=== PATIENT | male | born 1955 | race American Indian/Alaskan Native ===

== ENCOUNTER 2016-12-27 13:08 | Observation (INO) | payer MEDICARE, BC ==
--- NOTE | 2016-12-27 14:06 | C.PDOC ---
History Of Present Illness Patient is a 61 y/o M with hx of cirrhosis, GI bleed, ESRD on HD MWF, presenting with anemia. He reports that routine screening showed anemia to 7.8 and he was sent to ED for evaluation. Patient reports that he had one episode last week of dark blood in stool. Denies hematemesis. PMD: Dr. Isaac Time Seen by Provider: 12/27/16 13:48 Chief Complaint (Nursing): Abnormal Labs Past Medical History Vital Signs: Last Vital Signs Temp 99.3 F 12/27/16 13:15 Pulse 61 12/27/16 13:15 Resp 15 12/27/16 13:15 BP 144/79 12/27/16 13:15 Pulse Ox 99 12/27/16 16:19 - Medical History PMH: Anemia, Colonic Polyps, HTN - [facility] Procedures HEMODIALYSIS (07/13/13) PACKED CELL TRANSFUSION (03/13/13) Family History: States: No Known Family Hx - Social History Hx Tobacco Use: No Hx Alcohol Use: No Hx Substance Use: No - Immunization History Hx Tetanus Toxoid Vaccination: No Hx Influenza Vaccination: No Hx Pneumococcal Vaccination: No Review Of Systems Constitutional: Negative for: Fever, Chills Cardiovascular: Negative for: Chest Pain, Palpitations, Orthopnea, Edema, Light Headedness Respiratory: Negative for: Cough, Shortness of Breath, SOB with Excertion Gastrointestinal: Positive for: Other (bloody stool). Negative for: Nausea, Vomiting, Abdominal Pain, Diarrhea, Constipation, Hematemesis Genitourinary: Negative for: Dysuria, Frequency, Hematuria Neurological: Negative for: Weakness, Numbness Physical Exam - Physical Exam Appears: Well, Non-toxic, No Acute Distress Head: Atraumatic, Normacephalic Eye(s): bilateral: Normal Inspection, PERRL, EOMI Chest: Symmetrical Cardiovascular: Rhythm Regular Respiratory: Normal Breath Sounds, No Rales, No Rhonchi, No Wheezing, No Plerual Rub Gastrointestinal/Abdominal: Soft, No Tenderness, No Mass, No Distention Back: Normal Inspection, No CVA Tenderness Extremity: Other (AV fistula with thrill to LUE) ED Course And Treatment O2 Sat by Pulse Oximetry: 99 Medical Decision Making Medical Decision Making: Dialysis sent blood work showing hgb:7.6. Nurses tried for access and electronic lab technician came to get access and patient refusing. He will not allow any more attempts. Dr. Cabrera to admit for Dr. Isaac. Spoke to Dr. Cabrera who is aware about lack of repeat blood work. He reports he will get during dialysis and transfuse as necessary. Patient currently hemodynamically stable and denying any bleeding. Disposition - Disposition Disposition Time: 16:29 Condition: FAIR - Clinical Impression Clinical Impression: Anemia
--- NOTE | 2016-12-27 22:42 | CP.PCM.HP ---
Past Patient History - Past Social History Smoking Status: Former Smoker - CARDIAC Hx Hypertension: Yes - RENAL Date of Last Dialysis Treatment: 12/26/16 - HEMATOLOGICAL/ONCOLOGICAL Hx Anemia: Yes - MUSCULOSKELETAL/RHEUMATOLOGICAL Hx Falls: No - GASTROINTESTINAL Other/Comment: colonic polyps - PSYCHIATRIC Hx Substance Use: No - SURGICAL HISTORY Hx Surgeries: Yes Hx Arteriovenous Shunt: Yes (fistula) - ANESTHESIA Hx Anesthesia: Yes Hx Anesthesia Reactions: No Hx Malignant Hyperthermia: No Has any member of the family had a problem w/ anesthesia?: No Meds Allergies/Adverse Reactions: Allergies Allergy/AdvReac Type Severity Reaction Status Date / Time No Known Allergies Allergy Verified 12/27/16 13:14 Results - Vital Signs Recent Vital Signs: Last Vital Signs Temp 99.6 F 12/27/16 18:25 Pulse 81 12/27/16 18:25 Resp 20 12/27/16 18:25 BP 160/85 H 12/27/16 18:25 Pulse Ox 97 12/27/16 19:28 - Labs Labs: Laboratory Results - last 24 hr 12/27/16 21:00 Stool Occult Blood Negative
[2016-12-28 09:14] LABS: BASO # 0.1 K/uL (0.0-0.2); BASO % 0.9 % (0.0-2.0); EOS # 0.8 K/uL (0.0-0.7); EOS % 11.8 % (0.0-4.0); LYMPH # 0.6 K/uL (1.0-4.3); LYMPH % 9.1 % (20.0-40.0); MEAN CORPUSCULAR HEMOGLOBIN 24.8 pg (27.0-31.0); MEAN CORPUSCULAR HGB CONC 31.7 g/dL (33.0-37.0); MEAN PLATELET VOLUME 8.3 fL (7.2-11.7); MONO # 0.5 K/uL (0.0-0.8); MONO % 8.2 % (0.0-10.0); NEUT # 4.6 K/uL (1.8-7.0); NRBC % 0.1 % (0.0-2.0); PLATELET COUNT 194 K/uL (130-400); RBC 3.23 Mil/uL (4.40-5.90); RED CELL DISTRIBUTION WIDTH 15.7 % (11.5-14.5); WHITE BLOOD COUNT 6.6 K/uL (4.8-10.8)
[2016-12-28 09:18] LABS: ALBUMIN 3.4 g/dL (3.5-5.0)
[2016-12-28 09:19] LABS: MEAN CELL VOLUME 78.3 fL (80.0-94.0)
[2016-12-28 09:22] LABS: CALCIUM 8.7 mg/dl (8.6-10.4); INR 1.3; PROTHROMBIN TIME 14.7 SECONDS (9.7-12.2)
--- NOTE | 2016-12-28 09:53 | CP.PCM.PN ---
Subjective - Date & Time of Evaluation Date of Evaluation: 12/28/16 Time of Evaluation: 09:52 - Subjective Subjective: consent for dialysis discussed and signed with pt and primary lana hare. pt is a known dialysis for many years 2/2 esrd, renal failure. he has rec'd hd here at [facility] many times in the past. risks and benefits discussed with the pt. per lana hare, pt will have his hd today. no further orders. Objective - Vital Signs/Intake and Output Vital Signs (last 24 hours): Temp Pulse Resp BP Pulse Ox 98.8 F 69 20 163/89 H 97 12/28/16 08:40 12/28/16 08:40 12/28/16 08:40 12/28/16 08:40 12/28/16 08:40 - Medications Medications: Current Medications Dolutegravir Sodium (Tivicay) 50 mg PO DAILY [facility] Enoxaparin Sodium (Lovenox) 30 mg SC DAILY [facility] Losartan Potassium (Cozaar) 50 mg PO DAILY [facility] Last Admin: 12/27/16 21:41 Dose: 50 mg Itryl-0-Emcw Ethyl Esters (Lovaza) 1 gm PO DAILY [facility] Pantoprazole Sodium (Protonix Ec Tab) 40 mg PO DAILY [facility] Pneumococcal Polyvalent Vaccine (Pneumovax 23 Vaccine) 0.5 ml IM .ONCE ONE Stop: 12/29/16 10:01 Propranolol HCl (Inderal) 20 mg PO DAILY [facility] Sucralfate (Carafate Tab) 1 gm PO BID [facility] Tenofovir Disoproxil Fumarate (Viread) 300 mg PO Q7D [facility] - Labs Labs: 12/28/16 08:49 12/28/16 08:49 PT 14.7 SECONDS (9.7-12.2) H 12/28/16 08:49 INR 1.3 12/28/16 08:49 APTT 37 SECONDS (21-34) H 12/28/16 08:49
[2016-12-28] MEDS ORDERED: Enoxaparin 30 mg Syringe SC SCH (10:00)
[2016-12-28 10:09] LABS: ANISOCYTOSIS SLIGHT; BANDS 1 % (0-2); BASOPHIL 2 % (0-2); EOSINOPHIL 14 % (0-4); HYPOCHROMIC SLIGHT; LYMPHOCYTE 8 % (20-40); MONOCYTE 7 % (0-10); NEUTROPHIL 68 % (50-75); OVALOCYTES SLIGHT; PLATELET ESTIMATE NORMAL (NORMAL); POIKILOCYTOSIS SLIGHT; TOTAL CELLS COUNTED 100
[2016-12-28] MEDS: Pantoprazole 40 mg EC Tab PO SCH ×2 (10:43→14:52)
[2016-12-28] MEDS: Omega-3-Acid Ethyl Esters 1 GM Cap PO SCH ×2 (10:43→14:52)
[2016-12-28 11:59] LABS: FOLATE > 20.0 ng/mL
--- NOTE | 2016-12-28 12:02 | CP.PCM.CON ---
History of Present Illness - History of Present Illness History of Present Illness: 61 y/o male with ESRD on maintenance HD. HIV +, Liver cirrhosis, ?Hep C, hX/o GI bleeding sec to gastric polyp HTN was sent to ER from Dialysis clinic because of Hb of 7.8 Pt had resection of gastric polyp few yrs ago & since then Hb has been stable did not have any more melena. Past Patient History - Past Social History Smoking Status: Former Smoker - CARDIAC Hx Hypertension: Yes - RENAL Date of Last Dialysis Treatment: 12/26/16 - HEMATOLOGICAL/ONCOLOGICAL Hx Anemia: Yes - MUSCULOSKELETAL/RHEUMATOLOGICAL Hx Falls: No - GASTROINTESTINAL Other/Comment: colonic polyps - PSYCHIATRIC Hx Substance Use: No - SURGICAL HISTORY Hx Surgeries: Yes Hx Arteriovenous Shunt: Yes (fistula) - ANESTHESIA Hx Anesthesia: Yes Hx Anesthesia Reactions: No Hx Malignant Hyperthermia: No Has any member of the family had a problem w/ anesthesia?: No Meds Allergies/Adverse Reactions: Allergies Allergy/AdvReac Type Severity Reaction Status Date / Time No Known Allergies Allergy Verified 12/27/16 13:14 - Medications Medications: Current Medications Dolutegravir Sodium (Tivicay) 50 mg PO DAILY [facility] Last Admin: 12/28/16 10:43 Dose: Not Given Enoxaparin Sodium (Lovenox) 30 mg SC DAILY [facility] Losartan Potassium (Cozaar) 50 mg PO DAILY [facility] Last Admin: 12/28/16 10:43 Dose: Not Given Nrubr-3-Bamr Ethyl Esters (Lovaza) 1 gm PO DAILY [facility] Last Admin: 12/28/16 10:43 Dose: Not Given Pantoprazole Sodium (Protonix Ec Tab) 40 mg PO DAILY [facility] Last Admin: 12/28/16 10:43 Dose: Not Given Pneumococcal Polyvalent Vaccine (Pneumovax 23 Vaccine) 0.5 ml IM .ONCE ONE Stop: 12/29/16 10:01 Propranolol HCl (Inderal) 20 mg PO DAILY [facility] Last Admin: 12/28/16 10:43 Dose: Not Given Sucralfate (Carafate Tab) 1 gm PO BID [facility] Last Admin: 12/28/16 10:43 Dose: Not Given Tenofovir Disoproxil Fumarate (Viread) 300 mg PO Q7D [facility] Last Admin: 12/28/16 10:43 Dose: Not Given Physical Exam - Constitutional Appears: No Acute Distress - Head Exam Head Exam: ATRAUMATIC, NORMOCEPHALIC - Eye Exam Additional comments: Conjunctiva pale sclera anicteric - ENT Exam ENT Exam: Mucous Membranes Dry - Respiratory Exam Additional comments: Lungs clear - Cardiovascular Exam Cardiovascular Exam: REGULAR RHYTHM - GI/Abdominal Exam Additional comments: Abd soft nontender - Extremities Exam Additional comments: No edema or cyanosis Results - Vital Signs Recent Vital Signs: Last Vital Signs Temp 98.1 F 12/28/16 11:47 Pulse 78 12/28/16 11:47 Resp 18 12/28/16 11:47 BP 168/87 H 12/28/16 11:47 Pulse Ox 98 12/28/16 10:20 - Labs Result Diagrams: 12/28/16 08:49 12/28/16 08:49 Labs: Laboratory Results - last 24 hr 12/27/16 12/28/16 12/28/16 21:00 08:49 08:49 WBC 6.6 RBC 3.23 L Hgb 8.0 L D Hct 25.3 L MCV 78.3 L D MCH 24.8 L MCHC 31.7 L RDW 15.7 H Plt Count 194 MPV 8.3 Neut % (Auto) 70.0 Lymph % (Auto) 9.1 L [place] % (Auto) 8.2 Eos % (Auto) 11.8 H Baso % (Auto) 0.9 Neut # 4.6 Lymph # 0.6 L [place] # 0.5 Eos # 0.8 H Baso # 0.1 Neutrophils % (Manual) 68 Band Neutrophils % 1 Lymphocytes % (Manual) 8 L Monocytes % (Manual) 7 Eosinophils % (Manual) 14 H Basophils % (Manual) 2 Platelet Estimate Normal Hypochromasia (manual) Slight Poikilocytosis (manual Slight Anisocytosis (manual) Slight Ovalocytes Slight Retic Count 2.0 H PT 14.7 H INR 1.3 APTT 37 H Sodium Potassium Chloride Carbon Dioxide Anion Gap BUN Creatinine Est GFR ( Amer) Est GFR (Non-Af Amer) Random Glucose Calcium Ferritin Total Bilirubin AST ALT Alkaline Phosphatase Total Protein Albumin Globulin Albumin/Globulin Ratio Stool Occult Blood Negative Blood Type Antibody Screen 12/28/16 12/28/16 12/28/16 08:49 08:49 10:36 WBC RBC Hgb Hct MCV MCH MCHC RDW Plt Count MPV Neut % (Auto) Lymph % (Auto) [place] % (Auto) Eos % (Auto) Baso % (Auto) Neut # Lymph # [place] # Eos # Baso # Neutrophils % (Manual) Band Neutrophils % Lymphocytes % (Manual) Monocytes % (Manual) Eosinophils % (Manual) Basophils % (Manual) Platelet Estimate Hypochromasia (manual) Poikilocytosis (manual Anisocytosis (manual) Ovalocytes Retic Count PT INR APTT Sodium 134 Potassium 4.9 Chloride 92 L Carbon Dioxide 26 Anion Gap 22 H BUN 32 H Creatinine 10.4 H* Est GFR ( Amer) 6 Est GFR (Non-Af Amer) 5 Random Glucose 122 H Calcium 8.7 Ferritin 847.0 Total Bilirubin 0.7 AST 21 ALT 13 L D Alkaline Phosphatase 74 Total Protein 7.0 Albumin 3.4 L Globulin 3.6 Albumin/Globulin Ratio 1.0 Stool Occult Blood Blood Type O POSITIVE Antibody Screen Negative Assessment & Plan - Assessment and Plan (Free Text) Assessment: ESRD on HD Anemia Hx/o of GI bleed HTN Plan: Pt is receiving 2 units of PRBCs with HD now BP is high todat. UF goal 4 Kg Monitor BP
--- NOTE | 2016-12-28 13:07 | CP.PCM.CON ---
<Anurag Casillas - Last Filed: 12/28/16 13:44> History of Present Illness - History of Present Illness History of Present Illness: PGY3 on heme/onc Dr. Miranda service: 61M PMHx ESRD on HD MWF, HIV, liver cirrhosis was sent to ED per dialysis clinic for hemoglobin of 7.8. Heme/onc was consulted for anemia. Patient reports mild congestion for the past week for which he received medicine and is recovering. Patient also reports one episode of dark stool last week but resolved spontaneously. Patient said he was told he has anemia 4 years ago[address] Patient follows Dr. Randhawa outpatient GI and had unremarkable colonoscopy several years ago per patient. Patient was diagnosed with HIV and follows Dr. Velasco regularily. Patient said he previous viral load was undetectable and takes medicine daily. Currently reports no symptoms. PMHx: see above PSHx: denied FMHx: father from colon CA in his 80s, sister from breast CA in her 50s. Social: former smoker and ETOH use 20 years ago NKDA Review of Systems - Constitutional Constitutional: As Per HPI. absent: Weakness - EENT Eyes: absent: Sees Flashes Ears: absent: Dizziness - Cardiovascular Cardiovascular: absent: Chest Pain, Dyspnea, Dyspnea on Exertion, Edema - Respiratory Respiratory: absent: Cough, Dyspnea - Gastrointestinal Gastrointestinal: Hematochezia. absent: Constipation, Diarrhea, Nausea, Vomiting - Genitourinary Genitourinary: absent: Dysuria - Musculoskeletal Musculoskeletal: absent: Numbness - Neurological Neurological: absent: Weakness Past Patient History - Past Social History Smoking Status: Former Smoker - CARDIAC Hx Hypertension: Yes - RENAL Date of Last Dialysis Treatment: 12/26/16 - HEMATOLOGICAL/ONCOLOGICAL Hx Anemia: Yes - MUSCULOSKELETAL/RHEUMATOLOGICAL Hx Falls: No - GASTROINTESTINAL Other/Comment: colonic polyps - PSYCHIATRIC Hx Substance Use: No - SURGICAL HISTORY Hx Surgeries: Yes Hx Arteriovenous Shunt: Yes (fistula) - ANESTHESIA Hx Anesthesia: Yes Hx Anesthesia Reactions: No Hx Malignant Hyperthermia: No Has any member of the family had a problem w/ anesthesia?: No Meds Allergies/Adverse Reactions: Allergies Allergy/AdvReac Type Severity Reaction Status Date / Time No Known Allergies Allergy Verified 12/27/16 13:14 - Medications Medications: Current Medications Dolutegravir Sodium (Tivicay) 50 mg PO DAILY [facility] Last Admin: 12/28/16 10:43 Dose: Not Given Enoxaparin Sodium (Lovenox) 30 mg SC DAILY [facility] Losartan Potassium (Cozaar) 50 mg PO DAILY [facility] Last Admin: 12/28/16 10:43 Dose: Not Given Cbvpt-2-Fyne Ethyl Esters (Lovaza) 1 gm PO DAILY [facility] Last Admin: 12/28/16 10:43 Dose: Not Given Pantoprazole Sodium (Protonix Ec Tab) 40 mg PO DAILY [facility] Last Admin: 12/28/16 10:43 Dose: Not Given Pneumococcal Polyvalent Vaccine (Pneumovax 23 Vaccine) 0.5 ml IM .ONCE ONE Stop: 12/29/16 10:01 Propranolol HCl (Inderal) 20 mg PO DAILY [facility] Last Admin: 12/28/16 10:43 Dose: Not Given Sucralfate (Carafate Tab) 1 gm PO BID [facility] Last Admin: 12/28/16 10:43 Dose: Not Given Tenofovir Disoproxil Fumarate (Viread) 300 mg PO Q7D [facility] Last Admin: 12/28/16 10:43 Dose: Not Given Physical Exam - Constitutional Appears: Non-toxic, No Acute Distress - Head Exam Head Exam: NORMAL INSPECTION, NORMOCEPHALIC - Eye Exam Eye Exam: Normal appearance Pupil Exam: NORMAL ACCOMODATION - ENT Exam ENT Exam: Mucous Membranes Moist - Respiratory Exam Respiratory Exam: Clear to Auscultation Bilateral, NORMAL BREATHING PATTERN. absent: Wheezes - Cardiovascular Exam Cardiovascular Exam: REGULAR RHYTHM, +S1, +S2. absent: Gallop, Rubs - GI/Abdominal Exam GI & Abdominal Exam: Normal Bowel Sounds - Extremities Exam Extremities exam: Negative for: pedal edema - Neurological Exam Neurological exam: Alert, CN II-XII Intact, Oriented x3 - Psychiatric Exam Psychiatric exam: Normal Mood - Skin Skin Exam: Intact Results - Vital Signs Recent Vital Signs: Last Vital Signs Temp 98.1 F 12/28/16 12:47 Pulse 75 12/28/16 12:47 Resp 18 12/28/16 12:47 BP 165/87 H 12/28/16 12:50 Pulse Ox 98 12/28/16 10:20 - Labs Result Diagrams: 12/28/16 08:49 12/28/16 08:49 Labs: Laboratory Results - last 24 hr 12/27/16 12/28/16 12/28/16 21:00 08:49 08:49 WBC 6.6 RBC 3.23 L Hgb 8.0 L D Hct 25.3 L MCV 78.3 L D MCH 24.8 L MCHC 31.7 L RDW 15.7 H Plt Count 194 MPV 8.3 Neut % (Auto) 70.0 Lymph % (Auto) 9.1 L [place] % (Auto) 8.2 Eos % (Auto) 11.8 H Baso % (Auto) 0.9 Neut # 4.6 Lymph # 0.6 L [place] # 0.5 Eos # 0.8 H Baso # 0.1 Neutrophils % (Manual) 68 Band Neutrophils % 1 Lymphocytes % (Manual) 8 L Monocytes % (Manual) 7 Eosinophils % (Manual) 14 H Basophils % (Manual) 2 Platelet Estimate Normal Hypochromasia (manual) Slight Poikilocytosis (manual Slight Anisocytosis (manual) Slight Ovalocytes Slight Retic Count 2.0 H PT 14.7 H INR 1.3 APTT 37 H Sodium Potassium Chloride Carbon Dioxide Anion Gap BUN Creatinine Est GFR ( Amer) Est GFR (Non-Af Amer) Random Glucose Calcium Ferritin Total Bilirubin AST ALT Alkaline Phosphatase Total Protein Albumin Globulin Albumin/Globulin Ratio Vitamin B12 Folate Stool Occult Blood Negative Blood Type Antibody Screen 12/28/16 12/28/16 12/28/16 08:49 08:49 10:36 WBC RBC Hgb Hct MCV MCH MCHC RDW Plt Count MPV Neut % (Auto) Lymph % (Auto) [place] % (Auto) Eos % (Auto) Baso % (Auto) Neut # Lymph # [place] # Eos # Baso # Neutrophils % (Manual) Band Neutrophils % Lymphocytes % (Manual) Monocytes % (Manual) Eosinophils % (Manual) Basophils % (Manual) Platelet Estimate Hypochromasia (manual) Poikilocytosis (manual Anisocytosis (manual) Ovalocytes Retic Count PT INR APTT Sodium 134 Potassium 4.9 Chloride 92 L Carbon Dioxide 26 Anion Gap 22 H BUN 32 H Creatinine 10.4 H* Est GFR ( Amer) 6 Est GFR (Non-Af Amer) 5 Random Glucose 122 H Calcium 8.7 Ferritin 847.0 Total Bilirubin 0.7 AST 21 ALT 13 L D Alkaline Phosphatase 74 Total Protein 7.0 Albumin 3.4 L Globulin 3.6 Albumin/Globulin Ratio 1.0 Vitamin B12 991 H Folate > 20.0 Stool Occult Blood Blood Type O POSITIVE Antibody Screen Negative Assessment & Plan - Assessment and Plan (Free Text) Assessment: Anemia Recticulocyte index 0.8, ferritin 847, B12 991, Folate WNL. FOBT negative. Likely secondary to CKD vs HIV. Receiving 2U pRBC transfusion during HD. F/U immunofixation and monoclonal protein workup. ESRD Continue HD as per nephro MWF. Management as per nephro. HIV Continue home meds. Managmenet as per ID. <Paul Miranda - Last Filed: 12/30/16 22:35> Results - Vital Signs Recent Vital Signs: Last Vital Signs Temp 98 F 12/29/16 07:57 Pulse 70 12/29/16 07:57 Resp 21 12/29/16 07:57 BP 159/83 H 12/29/16 07:57 Pulse Ox 97 12/29/16 07:57 - Labs Result Diagrams: 12/28/16 08:49 12/28/16 08:49 Assessment & Plan - Assessment and Plan (Free Text) Assessment: Pt seen and examined, agree with resident consult. 61 year old male with a history of ESRD on HD, HIV, admitted with anemia. Anemia w/u sent, rule out monoclonal gammopathy. Transfusion support. Thank you for this interesting consult.
--- NOTE | 2016-12-28 16:32 | CP.PCM.PN ---
Subjective - Date & Time of Evaluation Date of Evaluation: 12/28/16 Time of Evaluation: 09:40 - Subjective Subjective: Clinically same Objective - Vital Signs/Intake and Output Vital Signs (last 24 hours): Temp Pulse Resp BP Pulse Ox 98.1 F 75 18 164/84 H 98 12/28/16 12:47 12/28/16 12:47 12/28/16 12:47 12/28/16 13:35 12/28/16 10:20 Intake and Output: 12/28/16 12/28/16 06:59 18:59 Intake Total 650 Balance 650 - Medications Medications: Current Medications Dolutegravir Sodium (Tivicay) 50 mg PO DAILY [facility] Last Admin: 12/28/16 14:51 Dose: 50 mg Enoxaparin Sodium (Lovenox) 30 mg SC DAILY [facility] Losartan Potassium (Cozaar) 50 mg PO DAILY [facility] Last Admin: 12/28/16 10:43 Dose: Not Given Eozld-3-Cxot Ethyl Esters (Lovaza) 1 gm PO DAILY [facility] Last Admin: 12/28/16 14:52 Dose: 1 gm Pantoprazole Sodium (Protonix Ec Tab) 40 mg PO DAILY [facility] Last Admin: 12/28/16 14:52 Dose: 40 mg Pneumococcal Polyvalent Vaccine (Pneumovax 23 Vaccine) 0.5 ml IM .ONCE ONE Stop: 12/29/16 10:01 Propranolol HCl (Inderal) 20 mg PO DAILY [facility] Last Admin: 12/28/16 14:51 Dose: 20 mg Sucralfate (Carafate Tab) 1 gm PO BID [facility] Last Admin: 12/28/16 10:43 Dose: Not Given Tenofovir Disoproxil Fumarate (Viread) 300 mg PO Q7D [facility] Last Admin: 12/28/16 14:52 Dose: 300 mg - Labs Labs: 12/28/16 08:49 12/28/16 08:49 PT 14.7 SECONDS (9.7-12.2) H 12/28/16 08:49 INR 1.3 12/28/16 08:49 APTT 37 SECONDS (21-34) H 12/28/16 08:49 - Constitutional Appears: Well - Head Exam Head Exam: ATRAUMATIC, NORMAL INSPECTION, NORMOCEPHALIC - Eye Exam Eye Exam: EOMI, Normal appearance, PERRL Pupil Exam: NORMAL ACCOMODATION, PERRL - ENT Exam ENT Exam: Mucous Membranes Moist, Normal Exam - Neck Exam Neck Exam: Full ROM, Normal Inspection. absent: Lymphadenopathy - Respiratory Exam Respiratory Exam: Decreased Breath Sounds - Cardiovascular Exam Cardiovascular Exam: REGULAR RHYTHM, +S1, +S2 - GI/Abdominal Exam GI & Abdominal Exam: Soft, Diminished Bowel Sounds - Rectal Exam Rectal Exam: Deferred
--- NOTE | 2016-12-28 19:14 | CP.PCM.CON ---
History of Present Illness - History of Present Illness History of Present Illness: 61M PMHx ESRD on HD MWF, HIV, liver cirrhosis was sent to ED per dialysis clinic for hemoglobin of 7.8. Heme/onc was consulted for anemia. Patient reports mild congestion for the past week for which he received medicine and is recovering. Patient also reports one episode of dark stool last week but resolved spontaneously. Patient said he was told he has anemia 4 years ago[address] Patient follows Dr. Randhawa outpatient GI and had unremarkable colonoscopy several years ago per patient. Patient was diagnosed with HIV and follows Dr. Velasco regularily. Patient said he previous viral load was undetectable and takes medicine daily. Currently reports no symptoms. PMHx: see above PSHx: denied FMHx: father from colon CA in his 80s, sister from breast CA in her 50s. Social: former smoker and ETOH use 20 years ago NKDA Review of Systems - Constitutional Constitutional: As Per HPI. absent: Weakness - EENT Eyes: absent: Sees Flashes Ears: absent: Dizziness - Cardiovascular Cardiovascular: absent: Chest Pain, Dyspnea, Dyspnea on Exertion, Edema - Respiratory Respiratory: absent: Cough, Dyspnea - Gastrointestinal Gastrointestinal: Hematochezia. absent: Constipation, Diarrhea, Nausea, Vomiting - Genitourinary Genitourinary: absent: Dysuria - Musculoskeletal Musculoskeletal: absent: Numbness - Neurological Neurological: absent: Weakness Past Patient History - Past Social History Smoking Status: Former Smoker - CARDIAC Hx Hypertension: Yes - RENAL Date of Last Dialysis Treatment: 12/26/16 - HEMATOLOGICAL/ONCOLOGICAL Hx Anemia: Yes - MUSCULOSKELETAL/RHEUMATOLOGICAL Hx Falls: No - GASTROINTESTINAL Other/Comment: colonic polyps - PSYCHIATRIC Hx Substance Use: No - SURGICAL HISTORY Hx Surgeries: Yes Hx Arteriovenous Shunt: Yes (fistula) - ANESTHESIA Hx Anesthesia: Yes Hx Anesthesia Reactions: No Hx Malignant Hyperthermia: No Has any member of the family had a problem w/ anesthesia?: No Meds Allergies/Adverse Reactions: Allergies Allergy/AdvReac Type Severity Reaction Status Date / Time No Known Allergies Allergy Verified 12/27/16 13:14 - Medications Medications: Current Medications Dolutegravir Sodium (Tivicay) 50 mg PO DAILY [facility] Last Admin: 12/28/16 10:43 Dose: Not Given Enoxaparin Sodium (Lovenox) 30 mg SC DAILY [facility] Losartan Potassium (Cozaar) 50 mg PO DAILY [facility] Last Admin: 12/28/16 10:43 Dose: Not Given Etlia-7-Opes Ethyl Esters (Lovaza) 1 gm PO DAILY [facility] Last Admin: 12/28/16 10:43 Dose: Not Given Pantoprazole Sodium (Protonix Ec Tab) 40 mg PO DAILY [facility] Last Admin: 12/28/16 10:43 Dose: Not Given Pneumococcal Polyvalent Vaccine (Pneumovax 23 Vaccine) 0.5 ml IM .ONCE ONE Stop: 12/29/16 10:01 Propranolol HCl (Inderal) 20 mg PO DAILY [facility] Last Admin: 12/28/16 10:43 Dose: Not Given Sucralfate (Carafate Tab) 1 gm PO BID [facility] Last Admin: 12/28/16 10:43 Dose: Not Given Tenofovir Disoproxil Fumarate (Viread) 300 mg PO Q7D [facility] Last Admin: 12/28/16 10:43 Dose: Not Given Past Patient History - Past Social History Smoking Status: Former Smoker - CARDIAC Hx Hypertension: Yes - RENAL Date of Last Dialysis Treatment: 12/26/16 - HEMATOLOGICAL/ONCOLOGICAL Hx Anemia: Yes - MUSCULOSKELETAL/RHEUMATOLOGICAL Hx Falls: No - GASTROINTESTINAL Other/Comment: colonic polyps - PSYCHIATRIC Hx Substance Use: No - SURGICAL HISTORY Hx Surgeries: Yes Hx Arteriovenous Shunt: Yes (fistula) - ANESTHESIA Hx Anesthesia: Yes Hx Anesthesia Reactions: No Hx Malignant Hyperthermia: No Has any member of the family had a problem w/ anesthesia?: No Meds Allergies/Adverse Reactions: Allergies Allergy/AdvReac Type Severity Reaction Status Date / Time No Known Allergies Allergy Verified 12/27/16 13:14 - Medications Medications: Current Medications Dolutegravir Sodium (Tivicay) 50 mg PO DAILY [facility] Last Admin: 12/28/16 14:51 Dose: 50 mg Enoxaparin Sodium (Lovenox) 30 mg SC DAILY [facility] Losartan Potassium (Cozaar) 50 mg PO DAILY [facility] Last Admin: 12/28/16 17:26 Dose: 50 mg [id number]-9-[id number] Ethyl Esters (Lovaza) 1 gm PO DAILY [facility] Last Admin: 12/28/16 14:52 Dose: 1 gm Pantoprazole Sodium (Protonix Ec Tab) 40 mg PO DAILY [facility] Last Admin: 12/28/16 14:52 Dose: 40 mg Pneumococcal Polyvalent Vaccine (Pneumovax 23 Vaccine) 0.5 ml IM .ONCE ONE Stop: 12/29/16 10:01 Propranolol HCl (Inderal) 20 mg PO DAILY [facility] Last Admin: 12/28/16 14:51 Dose: 20 mg Sucralfate (Carafate Tab) 1 gm PO BID [facility] Last Admin: 12/28/16 17:22 Dose: 1 gm Tenofovir Disoproxil Fumarate (Viread) 300 mg PO Q7D [facility] Last Admin: 12/28/16 14:52 Dose: 300 mg Physical Exam - Constitutional Appears: Chronically Ill - Head Exam Head Exam: ATRAUMATIC, NORMOCEPHALIC - Eye Exam Eye Exam: EOMI, PERRL - ENT Exam ENT Exam: Mucous Membranes Dry, Normal External Ear Exam - Neck Exam Neck exam: Negative for: Lymphadenopathy, Thyromegaly - Respiratory Exam Respiratory Exam: Decreased Breath Sounds, Clear to Auscultation Bilateral - Cardiovascular Exam Cardiovascular Exam: REGULAR RHYTHM - GI/Abdominal Exam GI & Abdominal Exam: Diminished Bowel Sounds, Soft. absent: Tenderness - Rectal Exam Rectal Exam: Deferred - Exam Exam: NORMAL INSPECTION - Extremities Exam Extremities exam: Positive for: pedal pulses present. Negative for: calf tenderness, pedal edema, tenderness - Back Exam Back exam: absent: CVA tenderness (L), CVA tenderness (R) - Neurological Exam Neurological exam: Alert, CN II-XII Intact, Oriented x3, Reflexes Normal - Psychiatric Exam Psychiatric exam: Normal Mood - Skin Skin Exam: Dry, Intact Results - Vital Signs Recent Vital Signs: Last Vital Signs Temp 100.2 F H 12/28/16 16:38 Pulse 80 12/28/16 16:38 Resp 20 12/28/16 16:38 BP 157/81 H 12/28/16 16:38 Pulse Ox 98 12/28/16 16:38 - Labs Result Diagrams: 12/28/16 08:49 12/28/16 08:49 Labs: Laboratory Results - last 24 hr 12/27/16 12/28/16 12/28/16 21:00 08:49 08:49 WBC 6.6 RBC 3.23 L Hgb 8.0 L D Hct 25.3 L MCV 78.3 L D MCH 24.8 L MCHC 31.7 L RDW 15.7 H Plt Count 194 MPV 8.3 Neut % (Auto) 70.0 Lymph % (Auto) 9.1 L [place] % (Auto) 8.2 Eos % (Auto) 11.8 H Baso % (Auto) 0.9 Neut # 4.6 Lymph # 0.6 L [place] # 0.5 Eos # 0.8 H Baso # 0.1 Neutrophils % (Manual) 68 Band Neutrophils % 1 Lymphocytes % (Manual) 8 L Monocytes % (Manual) 7 Eosinophils % (Manual) 14 H Basophils % (Manual) 2 Platelet Estimate Normal Hypochromasia (manual) Slight Poikilocytosis (manual Slight Anisocytosis (manual) Slight Ovalocytes Slight Retic Count 2.0 H PT 14.7 H INR 1.3 APTT 37 H Sodium Potassium Chloride Carbon Dioxide Anion Gap BUN Creatinine Est GFR ( Amer) Est GFR (Non-Af Amer) Random Glucose Calcium Ferritin Total Bilirubin AST ALT Alkaline Phosphatase Total Protein Albumin Globulin Albumin/Globulin Ratio Vitamin B12 Folate Stool Occult Blood Negative Blood Type Antibody Screen 12/28/16 12/28/16 12/28/16 08:49 08:49 10:36 WBC RBC Hgb Hct MCV MCH MCHC RDW Plt Count MPV Neut % (Auto) Lymph % (Auto) [place] % (Auto) Eos % (Auto) Baso % (Auto) Neut # Lymph # [place] # Eos # Baso # Neutrophils % (Manual) Band Neutrophils % Lymphocytes % (Manual) Monocytes % (Manual) Eosinophils % (Manual) Basophils % (Manual) Platelet Estimate Hypochromasia (manual) Poikilocytosis (manual Anisocytosis (manual) Ovalocytes Retic Count PT INR APTT Sodium 134 Potassium 4.9 Chloride 92 L Carbon Dioxide 26 Anion Gap 22 H BUN 32 H Creatinine 10.4 H* Est GFR ( Amer) 6 Est GFR (Non-Af Amer) 5 Random Glucose 122 H Calcium 8.7 Ferritin 847.0 Total Bilirubin 0.7 AST 21 ALT 13 L D Alkaline Phosphatase 74 Total Protein 7.0 Albumin 3.4 L Globulin 3.6 Albumin/Globulin Ratio 1.0 Vitamin B12 991 H Folate > 20.0 Stool Occult Blood Blood Type O POSITIVE Antibody Screen Negative Assessment & Plan (1) Anemia Status: Acute - Assessment and Plan (Free Text) Assessment: anemia HIV Hep C treated cirrhosis HTN ESRD on HD r/o GI bleed r/o varices GI on board Heme eval cont HAART rx
[2016-12-29 07:58] VITALS: BP 159/83; PULSE 70; RESP 21; TEMP 98; O2SAT 97
[2016-12-29] MEDS: Omega-3-Acid Ethyl Esters 1 GM Cap PO SCH (09:43)
[2016-12-29] MEDS: Pantoprazole 40 mg EC Tab PO SCH (09:44)
[2016-12-29] MEDS ORDERED: Pneumococcal 23-Valent Vaccine IM ONE (10:00)
--- NOTE | 2016-12-29 13:48 | CP.PCM.PN ---
Subjective - Date & Time of Evaluation Date of Evaluation: 12/29/16 Time of Evaluation: 08:40 - Subjective Subjective: clinically same Objective - Vital Signs/Intake and Output Vital Signs (last 24 hours): Temp Pulse Resp BP Pulse Ox 98 F 70 21 159/83 H 97 12/29/16 07:57 12/29/16 07:57 12/29/16 07:57 12/29/16 07:57 12/29/16 07:57 - Medications Medications: Current Medications Dolutegravir Sodium (Tivicay) 50 mg PO DAILY [facility] Last Admin: 12/29/16 09:51 Dose: 50 mg Enoxaparin Sodium (Lovenox) 30 mg SC DAILY [facility] Losartan Potassium (Cozaar) 50 mg PO DAILY [facility] Last Admin: 12/29/16 09:44 Dose: 50 mg Whrvs-3-Cwch Ethyl Esters (Lovaza) 1 gm PO DAILY [facility] Last Admin: 12/29/16 09:43 Dose: 1 gm Pantoprazole Sodium (Protonix Ec Tab) 40 mg PO DAILY [facility] Last Admin: 12/29/16 09:44 Dose: 40 mg Propranolol HCl (Inderal) 20 mg PO DAILY [facility] Last Admin: 12/29/16 09:44 Dose: 20 mg Sucralfate (Carafate Tab) 1 gm PO BID [facility] Last Admin: 12/29/16 09:44 Dose: 1 gm Tenofovir Disoproxil Fumarate (Viread) 300 mg PO Q7D [facility] Last Admin: 12/28/16 14:52 Dose: 300 mg - Labs Labs: 12/28/16 08:49 12/28/16 08:49 PT 14.7 SECONDS (9.7-12.2) H 12/28/16 08:49 INR 1.3 12/28/16 08:49 APTT 37 SECONDS (21-34) H 12/28/16 08:49 - Constitutional Appears: Well - Head Exam Head Exam: ATRAUMATIC, NORMAL INSPECTION, NORMOCEPHALIC - Eye Exam Eye Exam: EOMI, Normal appearance, PERRL Pupil Exam: NORMAL ACCOMODATION, PERRL - ENT Exam ENT Exam: Mucous Membranes Moist, Normal Exam - Neck Exam Neck Exam: Full ROM, Normal Inspection. absent: Lymphadenopathy - Respiratory Exam Respiratory Exam: Decreased Breath Sounds - Cardiovascular Exam Cardiovascular Exam: REGULAR RHYTHM, +S1, +S2 - GI/Abdominal Exam GI & Abdominal Exam: Soft, Diminished Bowel Sounds - Rectal Exam Rectal Exam: Deferred
== END 2016-12-29 14:13 | disposition home or self-care (01) ==
LOC: C.ER 13:08 → C.9E 16:15 → C.3T 17:57
PROVIDERS: ADMIT Internal Medicine Nephrology; ATTEND Internal Medicine Nephrology
DX: D64.9 Anemia, unspecified (principal); I12.0 Hypertensive chronic kidney disease with stage 5 chronic kidney disease or end stage renal disease; N18.6 End stage renal disease; K74.60 Unspecified cirrhosis of liver; B20 Human immunodeficiency virus [HIV] disease; B19.20 Unspecified viral hepatitis C without hepatic coma; Z99.2 Dependence on renal dialysis; Z87.891 Personal history of nicotine dependence
CPT/HCPCS: 36415; 36430; 80053; 82607; 82728; 82746; 85025; 85044; 85610; 85730; 86850; 86900; 86920; 99283; G0257; G0328; G0378; P9051

== ENCOUNTER 2018-06-03 14:42 | Outpatient (CLI) | payer MEDICARE, BC | END 2018-06-03 14:43 | disposition home or self-care (01) | LOC: C.RADIC 14:42 | DX: J18.9 Pneumonia, unspecified organism (principal) ==

== ENCOUNTER 2018-09-11 07:56 | Outpatient (CLI) | payer MEDICARE, BC | END 2018-09-11 07:57 | disposition home or self-care (01) | LOC: C.USIC 07:57 ==